=== PATIENT | female | born 1995 | race Caucasian/White ===

== ENCOUNTER → 2023-04-12 07:17 | Outpatient (CLI) | payer BC, SELFPAY ==
--- NOTE | ~2023-04-12 | US_ITS ---
EXAMINATION: US OB <= 14 weeks fetus DATE: 04/12/2023 07:47 INDICATION: First trimester viability assessment TECHNIQUE: Real-time pelvic transabdominal and transvaginal ultrasound was performed. COMPARISON: None. FINDINGS: The uterus measures 11.8 x 6.1 x 9.1 cm. There is an intrauterine gestational sac. A yolk s ac is identified. heart motion is identified measuring 169 beats per minute (bpm) by M-mode Dop pler. The crown rump length measures 3.7 cm, which correlates with an estimated gestational age of 10 weeks and 4 day(s) (+/-) 7 day(s). The right ovary measures 3.1 x 2.5 x 2.6 cm. The left ovary measures 3.2 x 1.0 x 2.2 cm. There is nor mal vascular flow in the ovaries. There is no free fluid in the pelvis. IMPRESSION: 1. Live intrauterine with an estimated gestational age of 10 weeks and 4 day(s) (+/-) 7 day (s) and an estimated delivery date of 11/04/2023. Reviewed, dictated and finalized at location A. LATORY ASSISTANT IMPRESSION: 1. Live intrauterine with an estimated gestational age of 10 weeks an d 4 day(s) (+/-) 7 day(s) and an estimated delivery date of 11/04/2023.
== END ==
PROVIDERS: PCP Advanced Practice Midwife; Visit Provider Advanced Practice Midwife
DX: O36.80X0 Pregnancy with inconclusive fetal viability, not applicable or unspecified (principal); Z3A.00 Weeks of gestation of pregnancy not specified
CPT/HCPCS: 76801

== ENCOUNTER 2023-11-06 01:09 | Inpatient (IN) | payer BC, SELFPAY ==
[2023-11-06] VITALS (165 sets, daily range): BP systolic 65–134; BP diastolic 42–81; PULSE 57–131; RESP 16–18; TEMP 36.3–37; O2SAT 82–100; BMI 29.7
[2023-11-06 02:06] LABS: Basophils Absolute Auto 0.1 K/mm3 (0.0-0.1); Basophils Percent Auto 0.4 % (0.2-1.2); Eosinophils Absolute Auto 0.1 K/mm3 (0-0.3); Eosinophils Percent Auto 0.6 % (0-4.4); Hematocrit 41.4 % (37.0-47.0); Hemoglobin 14.6 g/dL (12.0-15.0); Immature Granulocyte Absolute 0.12 K/mm3 (0.00-0.031); Immature Granulocyte Percent A 0.9 % (0-0.5); Lymphocytes Percent Auto 15.1 % (18.3-44.2); Mean Corpuscular HGB Conc 35.3 g/dl (32-36); Mean Corpuscular Hemoglobin 35.2 pg (26-34); Mean Corpuscular Volume 99.8 fl (80-100); Monocytes Absolute Auto 0.8 K/mm3 (0.1-0.6); Monocytes Percent Auto 6.2 % (2.6-8.5); Neutrophils Absolute Auto 10.2 K/mm3 (1.3-6.7); Neutrophils Percent Auto 76.8 % (45.5-73.1); Platelet Count Result 231 k/mm3 (150-375); Red Blood Count 4.15 M/mm3 (4.2-5.4); White Blood Count 13.3 K/mm3 (4.5-10.0)
--- NOTE | 2023-11-06 02:09 | LDADM ---
This patient, Yina Ocampo, was admitted to Labor/Delivery/Recovery 105 on 11/06/23 at 01:09. Plans for labor, pain management and were discussed with patient. Patient/family oriented to hospital policies and general routines including ID bracelet, bed and alarms, visiting hours, pain management, procedures, bathroom and other care routines, personal items, smoking policy, room service/diet and guest tray routines, security routines, and visiting hours. Patient/Family are encouraged to report perceived risks to care and to ask questions if they do not understand what they are told or what they should do. See OBIX for further documentation.
[2023-11-06 02:32] LABS: OBXCEM ROM Plus Positive
[2023-11-06 02:38] LABS: Rapid Plasma Reagin Non-Reactive (NonReactive)
[2023-11-06 02:56] LABS: HIV 1/2 Ab P24 Ag Result Negative (Negative)
[2023-11-06] MEDS: LACTATED RINGERS 1,000 ML 125 ML IV CONT ×2 (04:51→07:27)
[2023-11-06] MEDS: fentaNYL CITRATE INJ (*CRX) 100 MCG/2 ML VIAL IV PUSH ×2 (06:33→07:27)
--- NOTE | 2023-11-06 07:52 | WPDOBADMIT ---
Obstetrics - Admit Note Admission Note: record reviewed. Pertinent additions to the history and/or any subsequent changes in the physical findings that are not consistent with the expected course of the were found. Additions to the history and/or subsequent changes in the physical findings follow. Here with SROM @ 40 2/7 wks in labor. Initially 1 cm now 3-4/100/-2. Large forebag AROM with clear fluid. FHTs category 1.
--- NOTE | 2023-11-06 08:26 | WPDANESEPP ---
Anes - Eval Pre Procedure Procedure: labor pain management Date/Time: 11/06/23 08:26 Preop Diagnosis: pain during labor Pre Op Diagnosis: Contractions, Leaking Patient Data Age: 28 Gender: F Height: 1.52 m Weight: 69.1 kg Last Vital Signs Temp 97.8 F 11/06/23 06:38 Pulse 82 11/06/23 08:00 BP 119/68 11/06/23 08:00 Pulse Ox 99 11/06/23 08:25 O2 Del Method Room Air 11/06/23 02:07 Allergies Allergy/AdvReac Type Severity Reaction Status Date / Time adhesive tape Allergy Rash Verified 11/06/23 06:38 Home Medications Medication Instructions Recorded Confirmed Type albuterol sulfate 90 mcg/actuation 2 inhalation inhalation Q4H PRN 05/14/19 05/29/20 Rx aerosol inhaler (ProAir HFA) shortness of breath or wheezing #8.5 grams norethin-ethinyl estradiol-iron 1 tablet PO DAILY #84 tabs 05/29/20 05/29/20 Rx 0.4 mg-35 mcg(21)/75 mg(7) chew tablet sertraline 50 mg tablet 50 mg PO DAILY 30 days #30 tabs 01/15/21 Rx Laboratory Tests 11/06/23 11/06/23 01:26 01:47 WBC 13.3 H K/mm3 (4.5-10.0) RBC 4.15 L M/mm3 (4.2-5.4) Hgb 14.6 g/dL (12.0-15.0) Hct 41.4 % (37.0-47.0) MCV 99.8 fl (80-100) MCH 35.2 H pg (26-34) MCHC 35.3 g/dl (32-36) RDW 14.0 % (11.5-14.5) Plt Count 231 k/mm3 (150-375) MPV 11.0 H fl (7.4-10.4) Immature Gran % (Auto) 0.9 H % (0-0.5) Neut % (Auto) 76.8 H % (45.5-73.1) Lymph % (Auto) 15.1 L % (18.3-44.2) [place] % (Auto) 6.2 % (2.6-8.5) Eos % (Auto) 0.6 % (0-4.4) Baso % (Auto) 0.4 % (0.2-1.2) Lymph # (Auto) 2.00 K/mm3 (0.9-3.2) [place] # (Auto) 0.8 H K/mm3 (0.1-0.6) Eos # (Auto) 0.1 K/mm3 (0-0.3) Baso # (Auto) 0.1 K/mm3 (0.0-0.1) Abs Immat Gran (auto) 0.12 H K/mm3 (0.00-0.031) Absolute Neuts (auto) 10.2 H K/mm3 (1.3-6.7) Absolute Nucleated RBC 0.000 K/mm3 (0.0-0.012) Nucleated RBC % 0.0 % (0.0-0.2) Membranes Rupture Rom plus positive Membranes Rup Com Yes RPR Non-reactive (NonReactive) HIV 1&2 Ab/P24 Ag 4thGn Negative (Negative) Blood Type O Positive Antibody Screen Negative Patient hx anesthesia problems: none Family hx anesthesia problems: none Results Review: All pre-operative results and documents have been reviewed as part of the pre-operative evaluation. [facility] Surgical History Surgical History History of ankle surgery (~2014) Family History Family History Father Seizure Mother Hypertension Cerebrovascular accident Anxiety Grandparent Spina bifida Grandparent Liver cancer Grandparent Heart attack Social History Social History (Updated 05/29/20 @ 09:48 by Irina Lowe [facility]) Smoking status: Never smoker Substance use: never Do You Feel Safe in your Home?: Yes Lack of Transportation: No Lack of Food: Never True Current Housing: I Have Housing Concerned About Future Housing: No Difficulty Paying Gas/Electric Bills: No Difficulty Paying for Meds: No Currently Unemployed: YES Education: Master's Degree or Higher Difficulty w/ Childcare or Family Care: No Spiritual care concerns: No Exam Day of Procedure 11/06/23 08:26
[2023-11-06] MEDS: ONDANSETRON INJ 4 MG/2 ML VIAL IV PUSH (09:59)
--- NOTE | 2023-11-06 12:44 | PM.OBPRVD ---
OB - Vaginal Delivery Note Procedure Delivery date: 11/06/23 Events: Other (40 2/7 weeks labor with SROM) Induction method: None Delivery monitor: External FHT and External Uterine Route of delivery: Episiotomy description: None Laceration Description: Periurethral (Bilateral) Delivery repair: vicryl (3-0) Specimen: No Quantitative Blood Loss (ml): 100 Anesthesia type: Epidural Disposition: Floor Complications: No immediate complications Baby Date of : 11/06/23 Gestational Age by Date: 40 gender: Female presentation: vertex position: Right Occiput Anterior Placenta delivery description: Spontaneous Cord Vessel Description: 3 Vessels, Nuchal Cord (tight x1) and Delayed Cord Clamping score one minute: 8 score five minutes: 8
--- NOTE | 2023-11-06 12:45 | P.DS_ITS ---
DS: Admitting Diagnosis Discharge Date 11/07/23 Admitting Diagnosis IUP 40 2/7 wks with labor and SROM DS: Discharge Diagnosis Discharge Diagnosis (1) (normal spontaneous vaginal delivery): Code(s): O80 - Encounter for full-term uncomplicated delivery Status: Acute OB - DS: Summary OB Procedures : Ultrasound OB Procedures Intrapartum: Spontaneous Vag Delivery OB Procedures: : None Peripartum Data Delivery Method: Natural Vaginal Laceration Description: Periurethral (Bilateral) Episiotomy description: None complications: none Status at Discharge Functional status at discharge: independent ambulation Overall status at discharge: patient is progressing back to baseline Time Spent with Patient Time attestation: Total time spent providing and/or coordinating discharge services: DS: Data Data Completed and Pending Labs on day of discharge: Labs from last 24 hours 11/06/23 11/06/23 01:47 01:26 WBC 13.3 H RBC 4.15 L Hgb 14.6 Hct 41.4 MCV 99.8 MCH 35.2 H MCHC 35.3 RDW 14.0 Plt Count 231 MPV 11.0 H Immature Gran % (Auto) 0.9 H Neut % (Auto) 76.8 H Lymph % (Auto) 15.1 L [place] % (Auto) 6.2 Eos % (Auto) 0.6 Baso % (Auto) 0.4 Lymph # (Auto) 2.00 [place] # (Auto) 0.8 H Eos # (Auto) 0.1 Baso # (Auto) 0.1 Abs Immat Gran (auto) 0.12 H Absolute Neuts (auto) 10.2 H Absolute Nucleated RBC 0.000 Nucleated RBC % 0.0 Membranes Rupture Rom plus positive Membranes Rup Com Yes RPR Non-reactive HIV 1&2 Ab/P24 Ag 4thGn Negative Blood Type O Positive Antibody Screen Negative Discharge Plan Discharge Attending physician on discharge: Gayatri Vale Discharging Clinician: Gayatri Vale Anticipated Discharge Date/Time: 11/08/23 12:46 Patient Disposition: Home, Self-Care Activity: may shower and pelvic rest Diet: regular Patient Instructions: Antibiotic Form Stand Alone Forms: General Discharge Information Follow-up/Referrals: Melisa Kumar CNM [Certified Nurse Pipe Fitter Helper] - 6 Weeks Discharge Medications: New norethindrone (contraceptive) 0.35 mg tablet 0.35 mg PO DAILY Qty: 84 3RF Continued albuterol sulfate [ProAir HFA] 90 mcg/actuation HFA aerosol inhaler 2 inhalation INHALATION Q4H PRN (Reason: shortness of breath or wheezing) Qty: 8.5 0RF sertraline 50 mg tablet 50 mg PO DAILY 30 Days Qty: 30 2RF Discontinued noreth-ethinyl estradiol-iron 0.4mg-35mcg(21) and 75 mg (7) tablet,chewable 1 tablet PO DAILY Qty: 84 3RF Date of admission: 11/06/23 01:09 Primary Care Provider: Kenton Cox Admitting Provider: Gayatri Vale Attending physician on admission: Gayatri Vale Condition: Stable
[2023-11-06] MEDS: DOCUSATE SODIUM 100 MG CAPSULE PO (16:21)
[2023-11-06] MEDS: ACETAMINOPHEN 325 MG TABLET 650 MG PO (16:21)
[2023-11-06] MEDS: IBUPROFEN 600 MG TABLET PO (18:30)
--- NOTE | 2023-11-06 20:27 | PC.NURSE ---
[id number] Patient is off unit visiting baby at [facility] in [place], [place] on 8hr day pass per Dr. Michelle Armendariz's orders. At 1913 when patient returned to unit, full vitals and assessment completed on patient. Patient states she took tylenol and motrin at 1707. Will adjust medication times accordingly in EMAR.
[2023-11-07 05:24] LABS: Hematocrit 36.9 % (37.0-47.0); Hemoglobin 12.7 g/dL (12.0-15.0)
[2023-11-07] MEDS: DOCUSATE SODIUM 100 MG CAPSULE PO ×2 (07:20→16:32)
[2023-11-07] MEDS: IBUPROFEN 600 MG TABLET PO ×2 (07:20→16:32)
[2023-11-07] MEDS: MULTIVIT/MIN/PREN/FOL AC/IRON TABLET 1 TAB PO (07:20)
--- NOTE | 2023-11-07 07:45 | WPDANLDPN2 ---
Anes-Prog Note L&D Date/Time: 11/07/23 07:45 Neuro status: Neuro function grossly intact. Cardiovascular status: normal Respiratory status: normal Airway patency: baseline Mental status: baseline Post-Op hydration status: normal Vital Signs: Last Vital Signs Temp 36.8 C 11/06/23 23:30 Pulse 97 11/06/23 23:30 Resp 18 11/06/23 23:30 BP 91/53 L 11/06/23 23:30 Pulse Ox 99 11/06/23 23:30 O2 Del Method Room Air 11/06/23 23:30 Pain score (VAS): 0 I/O: Intake & Output 11/06/23 11/06/23 11/07/23 15:59 23:59 07:59 Intake Total 140 Output Total 1 Balance 139 Post-procedural complaints: none Patient feedback: Patient satisfied with anesthetic care.
[2023-11-07 08:25] VITALS: BP 95/53; PULSE 84; RESP 16; TEMP 37.1; O2SAT 97
--- NOTE | 2023-11-07 09:33 | PM.OBPNVD ---
OB - PN: Subj Subjective Date/time seen: 11/07/23 09:33 Patient comments: no complaints baby status: doing well OB - PN: Obj Data Labs 11/07/23 04:56 Labs: Laboratory Results - last 24 hr 11/07/23 04:56 Hgb 12.7 Hct 36.9 L OB - PN A/P Plan day: 1 Plan: routine care, discharge home, follow up 6 weeks and other ( plans Micronor for control) Time Spent With Patient Time: Total time spent is greater than 50% in coordination of care (as documented) at patient's floor/unit and/or counseling patient: Exam : Bimanual exam- vagina & uterus: other (Uterus firm, nt @U)
--- NOTE | 2023-11-07 11:25 | PC.NURSE ---
Introductions were made, then consulted with patient to assess needs related to . Mother led the conversation with her?plans to feed?her infant and the?experience so far. Mother works well with her with encouragement and education. This RN observed latch, education provided about how to get a deep latch beginning at infants nose. Mother states that the latch done with help from this RN feels much better than her previous feedings. Right breast has a small blister on the nipple from prior poor latch. Lansinoh provided an encouraged to use after feeds. Reviewed positioning and ear, shoulder, hip alignment, supporting the breast to facilitate a deep latch, asymmetrical latch (off-center), leading with the chin with a big, open, wide gape and body close to mother. Infant latched optimally to the right breast in cross cradle position. Education given to the mother of how to visualize the suckling (with good rocking jaw motion), swallows (dropping of the lower jaw) and how to listen for drinking at the breast (the ka sound). was able to maintain latch without pain to mother protecting the nipple with optimal positioning and latching. Mother voiced understanding of skin to skin, stimulating with massage touch, responsive feedings, hand expressed colostrum, talking to to encourage if it has been 2 -2.5 hours since the start of the last , to call if does not latch, or if there is discomfort with . Communication board updated. Parents voiced understanding of information, demonstrated learning and will call if there is a request for assistance. Reported to the Primary RN.
[2023-11-07 12:32] VITALS: BP 109/59; PULSE 93; RESP 16; TEMP 36.4; O2SAT 96
[2023-11-07 19:00] VITALS: BP 92/67; PULSE 82; RESP 18; TEMP 36.9; O2SAT 99
[2023-11-08] MEDS: IBUPROFEN 600 MG TABLET PO (02:45)
[2023-11-08 07:15] VITALS: BP 104/65; PULSE 78; RESP 16; TEMP 37.1; O2SAT 97
[2023-11-08] MEDS: MULTIVIT/MIN/PREN/FOL AC/IRON TABLET 1 TAB PO (08:41)
[2023-11-08] MEDS: DOCUSATE SODIUM 100 MG CAPSULE PO (08:41)
--- NOTE | 2023-11-08 09:03 | PM.OBPNVD ---
OB - PN: Subj Subjective Date/time seen: 11/08/23 09:03 Patient comments: no complaints and pain well controlled baby status: doing well and nursing well OB - PN: Obj Data Labs 11/07/23 04:56 OB - PN A/P Plan day: 2 Plan: routine care, discharge home and follow up 6 weeks Time Spent With Patient Time: Total time spent is greater than 50% in coordination of care (as documented) at patient's floor/unit and/or counseling patient: Exam : Bimanual exam- vagina & uterus: other (Uterus firm, nt @U)
--- NOTE | 2023-11-08 10:05 | PC.NURSE ---
Consulted with mother concerning needs and she shared her ability to independently latch infant optimally without pain. Mother is feeding appropriately for growth of infant and understands stimulating to eat if needed. Infant has had appropriate feedings in the last 24 hours meets the outcomes for weight, output, blood sugar and jaundice at this time. Reinforced understanding of milk production, transition of milk, signs of adequate intake, transition of stool, responsive watching for feeding cues, the different methods of stimulating infant to breastfeed 1-3 hours after the start of the last feeding, community resources, and when to call a provider using the resource of the feeding sheet along with the mom and baby guide. We discussed expected weight loss for newborns and what to expect for follow up with Jovon and her manager bilingual. Mother voiced understanding of the information shared, is confident to continue effectively her at home, when to call for assistance, denies any additional assistance or education at this time. Reported to the Primary RN.
--- NOTE | 2023-11-08 13:11 | PC.NURSE ---
Patient viewed the discharge video Mother & Baby Care, The First Two Weeks . Patient was given the opportunity and encouraged to ask questions. Patient verbalized understanding of information shared and has been given the mother/baby guide for home reference.
[2023-11-10 09:06] VITALS: BP 118/71; PULSE 95; RESP 16; TEMP 36.8; O2SAT 99
== END 2023-11-08 15:42 | disposition home or self-care (01) | DRG 807 ==
LOC: ANHLDR 12:47 → ANHOB2 15:08
PROVIDERS: Admitting Provider Obstetrics & Gynecology Gynecology; PCP Family Medicine; Referring Provider Advanced Practice Midwife; Visit Provider Obstetrics & Gynecology Gynecology
DX: O69.1XX0 Labor and delivery complicated by cord around neck, with compression, not applicable or unspecified (principal); Z37.0 Single live birth; Z3A.40 40 weeks gestation of pregnancy; O71.82 Other specified trauma to perineum and vulva
CPT/HCPCS: 36415; 84112; 85014; 85018; 85025; 86592; 86703; 86850; 86900; 86901; A9270; G0432; J2405; J2795; J3010; J7120